=== PATIENT | female | born 1975 | race Caucasian/White ===

== ENCOUNTER 2024-10-14 00:39 | Inpatient (IN) | payer BC, MEDICARE ==
[2024-10-14] MEDS ORDERED: Ondansetron 4 MG/2 ML SDV IVPUSH PRN (02:01)
[2024-10-14] MEDS ORDERED: HYDROmorphone 0.5 MG/0.5 ML Syringe IVPUSH PRN (02:01)
[2024-10-14] MEDS: Sodium Chloride 0.9% 1,000 ML IV SCH (02:28)
[2024-10-14] MEDS: Pantoprazole 40 MG Vial IVPUSH SCH (02:28)
[2024-10-14] MEDS: Piperacillin/Tazobactam 4.5 GM in Sodium Chloride 0.9% 100 ML IV SCH (02:55)
[2024-10-14 05:59] LABS: BASOPHILS ABSOLUTE AUTO 0.06 K/uL (0.00-0.10); BASOPHILS PERCENT AUTO 0.9 % (0.1-1.3); EOSINOPHILS ABSOLUTE AUTO 0.22 K/uL (0.00-0.40); EOSINOPHILS PERCENT AUTO 3.2 % (0.0-5.4); HEMATOCRIT 34.8 % (34.3-46.0); HEMOGLOBIN 11.8 g/dL (11.2-15.5); IMMATURE GRAN PERCENT AUTO 0.3 % (0.0-0.7); LYMPHOCYTES ABSOLUTE AUTO 1.75 K/uL (0.8-3.3); LYMPHOCYTES PERCENT AUTO 25.5 % (11.4-47.7); MEAN CORPUSCULAR HEMOGLOBIN 33.7 pg (31.6-35.5); MEAN CORPUSCULAR HGB CONC 33.9 g/dL (31.6-35.5); MEAN CORPUSCULAR VOLUME 99.4 fL (81.4-99.0); MONOCYTES ABSOLUTE AUTO 0.63 K/uL (0.20-0.90); MONOCYTES PERCENT AUTO 9.2 % (3.3-12.6); NEUTROPHILS ABSOLUTE AUTO 4.19 K/uL (1.0-7.6); NEUTROPHILS PERCENT AUTO 60.9 % (40.0-78.1); PLATELET COUNT,PLT 177 K/uL (130-375); WHITE BLOOD CELL COUNT,WBC 6.9 K/uL (3.2-11.0)
[2024-10-14 06:00] LABS: IMMATURE GRAN ABSOLUTE AUTO 0.02 K/uL (0.00-0.23)
[2024-10-14 06:20] LABS: ANION GAP 9.7 mmol/L (5.0-14.0); CALCIUM 8.2 mg/dL (8.5-10.1); CREATININE 0.9 mg/dL (0.6-1.0); EST CRCL DRUG DOSING (CG) 66.01 mL/min; MAGNESIUM 1.6 mg/dL (1.8-2.4); POTASSIUM,K 3.9 mmol/L (3.6-5.2)
[2024-10-14] MEDS ORDERED: Rocuronium 50 MG/5 ML Vial ONE (09:18)
[2024-10-14] MEDS ORDERED: Glycopyrrolate 0.2 MG/ML 5 ML MDV ONE (09:18)
[2024-10-14] MEDS ORDERED: Propofol 200 MG/20 ML SDV ONE (09:18)
[2024-10-14] MEDS ORDERED: Succinylcholine 200 MG/10 ML MDV ONE (09:18)
[2024-10-14] MEDS ORDERED: Neostigmine Methylsulfate 10 MG/10 ML MDV ONE (09:18)
[2024-10-14] MEDS ORDERED: fentaNYL 250 MCG/5 ML SDV ONE ×2 (09:18→12:05)
[2024-10-14] MEDS ORDERED: Dexamethasone 4 MG/ML SDV ONE (09:18)
[2024-10-14] MEDS ORDERED: Ondansetron 4 MG/2 ML SDV ONE (09:18)
[2024-10-14] MEDS: Magnesium Sulf/Wat 2 GM/50 mL 2 GM in Premix Bag 1 BAG IV ONE (09:42)
[2024-10-14] MEDS: Piperacillin/Tazobactam/Dext 4.5 GM in Premix Bag 1 BAG IV SCH (10:58)
[2024-10-14] MEDS ORDERED: Labetalol 20 MG/4 ML Syringe ONE (12:18)
[2024-10-14] MEDS: Bupivacaine 0.25%/EPINEPHrine 1:200,000 30 ML SDV ONE ×2 (13:00→13:57)
[2024-10-14] MEDS: Acetaminophen 325 MG Tab PO PRN (16:08)
[2024-10-14] MEDS: Ketorolac 30 MG/ML SDV IVPUSH ONE (16:52)
== END 2024-10-14 17:17 | disposition home or self-care (01) | DRG 221 ==
LOC: JP.ICU 00:39
PROVIDERS: ADMIT Surgery; ATTEND Surgery
PROC: 0DT80ZZ Resection of Small Intestine, Open Approach (ICD-10-PCS; principal; 2024-10-14 12:00)
DX: R10.84 Generalized abdominal pain (principal); H54.7 Unspecified visual loss; I10 Essential (primary) hypertension; G47.30 Sleep apnea, unspecified; K21.9 Gastro-esophageal reflux disease without esophagitis; K27.9 Peptic ulcer, site unspecified, unspecified as acute or chronic, without hemorrhage or perforation; E28.2 Polycystic ovarian syndrome; M54.9 Dorsalgia, unspecified; G89.29 Other chronic pain; F41.9 Anxiety disorder, unspecified; F32.A Depression, unspecified; E66.9 Obesity, unspecified; Z68.43 Body mass index [BMI] 50.0-59.9, adult; Z86.16 Personal history of COVID-19; Z88.8 Allergy status to other drugs, medicaments and biological substances; Z90.49 Acquired absence of other specified parts of digestive tract; Z79.899 Other long term (current) drug therapy; Z72.0 Tobacco use; Z98.890 Other specified postprocedural states; Z90.710 Acquired absence of both cervix and uterus
CPT/HCPCS: 00840-QZ; 36415; 80048; 83735; 84100; 85025; A9270-GY; J0330; J1100; J1596; J1885; J1920; J2405; J2470; J2543; J2704; J2710; J3010; J3475; J3490; J7030